=== PATIENT | female | born 1965 | race Caucasian/White ===

== ENCOUNTER 2020-06-16 09:15 | Outpatient (CLI) | payer OTHER, SELFPAY ==
--- NOTE | ~2020-06-16 | MM_ITS ---
EXAMINATION: MM screening mary BI w james HISTORY: Screening TECHNIQUE: Craniocaudal and mediolateral oblique 3-D tomosynthesis images were obtained and synthetic 2-D images were generated. CAD analysis was submitted and interpreted. COMPARISON: Comparison to multiple prior studies sequentially, with oldest reviewed study dated 12/18. BREAST PARENCHYMAL COMPOSITION: The breasts are heterogeneously dense, which may obscure small masses . FINDINGS: There is no evidence of suspicious mass, calcification, or architectural distortion to sugg est malignancy in either breast. There has been no suspicious interval change. IMPRESSION: 1. No mammographic evidence of malignancy. 2. Recommend routine screening mammography in one year. BI-RADS Category 1: Negative Reviewed, dictated and finalized at location A.
== END 2020-06-16 09:16 | disposition home or self-care (01) ==
LOC: ANHIMG 09:23
PROVIDERS: PCP Family Medicine; Visit Provider Nurse Practitioner
DX: Z12.31 Encounter for screening mammogram for malignant neoplasm of breast (principal)
CPT/HCPCS: 77063; 77067

== ENCOUNTER 2021-07-03 08:03 | Outpatient (CLI) | payer OTHER, SELFPAY ==
--- NOTE | ~2021-07-03 | MM_ITS ---
EXAMINATION: MM screening mary BI w james HISTORY: Screening mammogram TECHNIQUE: Craniocaudal and mediolateral oblique 3-D tomosynthesis images were obtained and synthetic 2-D images were generated. CAD analysis was submitted and interpreted. COMPARISON: 06/16/2020, 05/18/2019, 05/16/2018 bilateral screening mammogram examinations BREAST PARENCHYMAL COMPOSITION: There are scattered areas of fibroglandular density. FINDINGS: Possible new 6.4 mm circumscribed mass in the posterior mid inner right breast (craniocauda l Tomosynthesis image 33/73; MLO Tomosynthesis image 37/80). Diagnostic right mammogram and right karlene ast ultrasound examination are recommended. Otherwise there is no evidence of suspicious mass, calcification, or architectural distortion to sugg est malignancy in either breast. Occasional bilateral benign calcifications. There has been no other suspicious interval change. Biopsy marker on the left; history of prior benign left breast biopsy. IMPRESSION: 1. No mammographic evidence of malignancy. 2. Recommend routine screening mammography in one year. BI-RADS Category 0: Incomplete: Needs additional imaging evaluation. Reviewed, dictated and finalized at location A.
== END 2021-07-03 08:04 | disposition home or self-care (01) ==
LOC: ANHIMG 08:04
PROVIDERS: PCP Family Medicine; Visit Provider Nurse Practitioner
DX: Z12.31 Encounter for screening mammogram for malignant neoplasm of breast (principal); R92.8 Other abnormal and inconclusive findings on diagnostic imaging of breast
CPT/HCPCS: 77063; 77067

== ENCOUNTER 2021-07-22 20:16 | Emergency (ER) | payer OTHER, SELFPAY ==
--- NOTE | ~2021-07-22 | XR_ITS ---
EXAMINATION: XR knee RT min 4V DATE: 07/22/2021 21:07 INDICATION: Posterior right knee pain TECHNIQUE: Anteroposterior, 2 oblique and crosstable lateral views of the right knee were obtained COMPARISON: None. FINDINGS: Alignment is normal. No fracture. Joint spaces appear normal but could be underestimated on nonweigh tbearing imaging. Couple small loose bodies projecting over the recess posterior to the medial compar tment. Small enthesopathic ossicle at the distal quadriceps tendon. No joint effusion/layering lipohe marthrosis. Soft tissues are unremarkable. IMPRESSION: 1. No right knee joint effusion or osseous abnormality. Reviewed, dictated and finalized at location A. 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
[2021-07-22 20:29] VITALS: BP 155/82; PULSE 91; RESP 14; TEMP 36.4; O2SAT 100
[2021-07-22 21:16] LABS: Basophils Percent Auto 0.6 % (0.2-1.2); Eosinophils Absolute Auto 0.2 K/mm3 (0-0.3); Eosinophils Percent Auto 2.9 % (0-4.4); Hemoglobin 12.6 g/dL (12.0-15.0); Immature Granulocyte Absolute 0.01 K/mm3 (0.00-0.031); Immature Granulocyte Percent A 0.1 % (0-0.5); Lymphocytes Percent Auto 29.2 % (18.3-44.2); Mean Corpuscular HGB Conc 33.2 g/dl (32-36); Mean Corpuscular Hemoglobin 31.7 pg (26-34); Mean Corpuscular Volume 95.5 fl (80-100); Mean Platelet Volume 9.7 fl (7.4-10.4); Monocytes Absolute Auto 0.7 K/mm3 (0.1-0.6); Monocytes Percent Auto 10.1 % (2.6-8.5); Neutrophils Absolute Auto 3.9 K/mm3 (1.3-6.7); Neutrophils Percent Auto 57.1 % (45.5-73.1); Platelet Count Result 304 k/mm3 (150-375); Red Blood Count 3.98 M/mm3 (4.2-5.4); Red Cell Distribution Width 13.2 % (11.5-14.5); White Blood Count 6.9 K/mm3 (4.5-10.0)
[2021-07-22 21:28] LABS: D Dimer 0.44 ug/mL (<0.48)
[2021-07-22 21:29] LABS: Anion Gap 8 mmol/L (8-16); Blood Urea Nitrogen 16 mg/dL (7-17); Calcium 9.3 mg/dL (8.4-10.2); Carbon Dioxide 25 mmol/L (22-30); Chloride 105 mmol/L (98-107); Estimated CRCL calculation 62 ml/min; Estimated Glomerular Filt Rate > 60; Glucose 131 mg/dL (65-110); Sodium 138 mmol/L (137-145)
--- NOTE | 2021-07-22 22:00 | ED.EXTPRO ---
HPI - Extremity Problem General Chief complaint: Extremity Problem,Nontraumatic Stated complaint: right leg pain X3 days Time Seen by Provider: 07/22/21 20:47 Source: patient Mode of arrival: ambulatory Limitations: no limitations History of Present Illness HPI Narrative: 55-year-old with no major medical problems here with complaints of pain behind the right knee for last 3 days. She denies any trauma. No joint swelling. No previous history of DVT. MD Complaint: joint paint Onset (ago): day(s) (3) Pain Consistency: constant Location: knee (Right) Quality: aching Radiation: none Relieving factors: nothing Exacerbating factors: walking Associated symptoms: denies other symptoms Related Data Home Medications Medication Instructions Recorded Confirmed progesterone micronized 200 mg 200 mg PO DAILY cap 10/13/20 04/07/21 capsule Allergies Allergy/AdvReac Type Severity Reaction Status Date / Time Sulfa (Sulfonamide Allergy Unknown rash, Verified 07/22/21 20:39 Antibiotics) throat swelling Review of Systems Review of Systems: All systems reviewed & are unremarkable except as noted in HPI and below Constitutional: Constitutional: Reports no additional constitutional complaints Eyes: Eyes: Reports no additional eye complaints ENT: Reports system reviewed and no additional complaints, except as documented Cardiovascular: Cardiovascular: Reports no additional cardiovascular complaints Respiratory: Respiratory: Reports no additional respiratory complaints Gastrointestinal: Gastrointestinal: Reports no additional gastrointestinal complaints Musculoskeletal: Musculoskeletal: Reports as per HPI Neurologic: Reports system reviewed and no additional complaints, except as documented PMFSH Past Medical History Medical History Hypertension Surgical History Surgical History H/O section History of appendectomy Family History Family History Grandparent Family history of malignant neoplasm of stomach Mother Hypertension Hyperlipidemia Afib Sibling Carcinoma of colon Other Family history of malignant neoplasm of kidney Social History Social History Second hand tobacco smoke exposure: No Alcohol intake: current Substance use: never Substance use type: does not use Gender identity (if verbalized by the patient): Female Exam Narrative: GENERAL: Well-appearing, well-nourished, and in no acute distress. HEAD: Normocephalic, atraumatic. EYES: PERRLA and EOMI. NECK: Supple. CHEST: Clear to auscultation. No respiratory distress. HEART: Regular rate and rhythm. No murmur heard. Normal peripheral pulses. EXTREMITIES: Normal range of motion. No edema. Examination of the right knee showed no evidence of joint effusion no calf tenderness no erythema. Pain in the popliteal area. SKIN: Warm, dry, no rash. NEURO: No focal deficits. Alert and oriented x3. PSYCH: Normal mood and affect. Course Course Emergency Course: Inform patient and her family about her lab work, x-ray findings I suspect there could be a small Rouse's cyst which could be causing this pain advised her to follow-up with her primary doctor for further work-up, meanwhile will apply Mauro wrap and pain medication. Vital Signs Vital signs: Vital Signs Temperature 36.4 C L 07/22/21 20:29 Pulse Rate 91 07/22/21 20:29 Respiratory Rate 14 07/22/21 20:29 Blood Pressure 155/82 H 07/22/21 20:29 Pulse Oximetry 100 07/22/21 20:29 Temperature 36.4 C L 07/22/21 20:29 Pulse Rate 91 07/22/21 20:29 Respiratory Rate 14 07/22/21 20:29 Blood Pressure 155/82 H 07/22/21 20:29 Pulse Oximetry 100 07/22/21 20:29 MDM - Extremity (Nontraumatic) MDM Narrative Medical decision making narr
[2021-07-22 22:17] VITALS: BP 153/85; PULSE 79; RESP 16; O2SAT 100
== END 2021-07-22 22:20 | disposition home or self-care (01) ==
PROVIDERS: Emergency Provider Family Medicine; PCP Family Medicine
DX: M25.561 Pain in right knee (principal); I10 Essential (primary) hypertension
CPT/HCPCS: 36415; 73564; 80048; 85025; 85380; 99283

== ENCOUNTER 2021-07-23 07:46 | Outpatient (CLI) | payer OTHER, SELFPAY ==
--- NOTE | ~2021-07-23 | US_ITS ---
EXAMINATION: US venous doppler LE RT EXAM DATE: 07/23/2021 08:21 INDICATION: Right leg pain. TECHNIQUE: Multiple grayscale, color flow and Doppler images of the right lower extremity deep venous system were obtained and reviewed. There is no prior study for comparison. FINDINGS: The right common femoral, femoral and profunda veins demonstrate normal color flow, respira tory variation, augmentation and compressibility. Compressibility, color flow confirmed within the r ight popliteal, posterior tibial, peroneal, and greater saphenous veins. IMPRESSION: 1. No right lower extremity deep venous thrombosis. Reviewed, dictated and finalized at location B. 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
== END 2021-07-23 07:47 | disposition home or self-care (01) ==
PROVIDERS: PCP Family Medicine; Visit Provider Family Medicine
DX: I82.403 Acute embolism and thrombosis of unspecified deep veins of lower extremity, bilateral (principal)
CPT/HCPCS: 93971

== ENCOUNTER 2021-07-28 12:35 | Outpatient (CLI) | payer OTHER, SELFPAY ==
--- NOTE | ~2021-07-28 | MMUS_ITS ---
EXAMINATION: MM diagnostic mary RT w james, US breast RT limited HISTORY: Possible right breast mass on screening mammogram TECHNIQUE: Additional 3-D tomosynthesis images of the right breast were performed and synthetic 2-D i mages were generated. CAD analysis was submitted and interpreted. High resolution limited right breas t ultrasound was performed. COMPARISON: 07/03/2021, 06/16/2020, 05/18/2019, 05/16/2018 FINDINGS: MAMMOGRAPHIC FINDINGS: There is a return to baseline fibroglandular appearance with spot compression of the right breast in the area questioned on screening mammogram. A low-density mass in the posterior third of the breast h as a stable appearance when compared to prior mammograms. ULTRASOUND: There is a 5 mm cyst at the 2:00 location of the breast projecting near the nipple. IMPRESSION: 1. No mammographic or sonographic evidence of malignancy. 2. Recommend routine screening mammography in one year. BI-RADS Category 2: Benign finding(s). Reviewed, dictated and finalized at location A. 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 No mammographic or sonographic evidence of malignancy. 2. Recommend routine screening mammography in one year. BI-RADS Category 2: Benign finding(s).
== END 2021-07-28 12:36 | disposition home or self-care (01) ==
PROVIDERS: PCP Family Medicine; Visit Provider Obstetrics & Gynecology Gynecology
DX: R92.8 Other abnormal and inconclusive findings on diagnostic imaging of breast (principal)
CPT/HCPCS: 76642; 77061; 77065; G0279

== ENCOUNTER 2022-08-16 02:12 | Day surgery (SDC) | payer BC, SELFPAY ==
[2022-08-13 11:46] VITALS: BMI 30.2
[2022-08-16] VITALS (8 sets, daily range): BP systolic 117–131; BP diastolic 71–86; PULSE 71–75; RESP 12–19; TEMP 36.9; O2SAT 98–100; BMI 28.5
[2022-08-16 07:38] LABS: Anion Gap 9 mmol/L (8-16); Basophils Absolute Auto 0.1 K/mm3 (0.0-0.1); Blood Urea Nitrogen 18 mg/dL (7-17); Calcium 8.8 mg/dL (8.4-10.2); Carbon Dioxide 27 mmol/L (22-30); Chloride 106 mmol/L (98-107); Eosinophils Absolute Auto 0.3 K/mm3 (0-0.3); Eosinophils Percent Auto 4.6 % (0-4.4); Estimated CRCL calculation 64 ml/min; Estimated Glomerular Filt Rate > 60; Glucose 104 mg/dL (65-110); Hematocrit 38.5 % (37.0-47.0); Hemoglobin 12.6 g/dL (12.0-15.0); Immature Granulocyte Absolute 0.02 K/mm3 (0.00-0.031); Immature Granulocyte Percent A 0.3 % (0-0.5); Lymphocytes Absolute Auto 1.93 K/mm3 (0.9-3.2); Lymphocytes Percent Auto 30.6 % (18.3-44.2); Mean Corpuscular HGB Conc 32.7 g/dl (32-36); Mean Corpuscular Hemoglobin 31.5 pg (26-34); Mean Corpuscular Volume 96.3 fl (80-100); Mean Platelet Volume 9.7 fl (7.4-10.4); Monocytes Absolute Auto 0.6 K/mm3 (0.1-0.6); Monocytes Percent Auto 9.5 % (2.6-8.5); Neutrophils Absolute Auto 3.4 K/mm3 (1.3-6.7); Platelet Count Result 294 k/mm3 (150-375); Potassium 3.6 mmol/L (3.4-5.0); Sodium 142 mmol/L (137-145); White Blood Count 6.3 K/mm3 (4.5-10.0)
--- NOTE | 2022-08-16 08:26 | WPDMODSED ---
Moderate Sedation Note-Pt Data Patient Data Diagnosis: Abnormal stress test atypical chest pain Present Complaint: intermittent nonexertional chest pain Procedure to be performed/Plan: left heart catheterization Allergies Allergy/AdvReac Type Severity Reaction Status Date / Time Sulfa (Sulfonamide Allergy Unknown rash, Verified 04/12/22 09:22 Antibiotics) throat swelling Home Medications Medication Instructions Recorded Confirmed Type progesterone micronized 200 mg 100 mg PO DAILY 04/12/22 08/13/22 History capsule aspirin 81 mg tablet,delayed 81 mg PO DAILY #30 tabs 07/28/22 08/16/22 Rx release atorvastatin 20 mg tablet 20 mg PO DAILY #30 tabs 07/28/22 08/13/22 Rx lisinopril 20 mg tablet 20 mg PO DAILY #90 tabs 08/10/22 08/16/22 Rx multivit with minerals-iron 18 1 tablet PO DAILY 08/13/22 08/13/22 History mg-folic ac 400 mcg-vit K 25 mcg tablet (Adults Multivitamin) Current Medications: Active Medications Sodium Chloride (Normal Saline Iv) 500 mls @ 100 mls/hr IV CONT .Q5H CHRISTINA Sedation/Anesthesia: No previous sedation/anesthesia problems (including family history). COUNTS INCLUDE 234 BEDS AT THE [facility] Past Medical History Medical History Hypertension Surgical History Surgical History H/O section History of appendectomy Family History Family History Grandparent Family history of malignant neoplasm of stomach Mother Hypertension Hyperlipidemia Afib Sibling Carcinoma of colon Other Family history of malignant neoplasm of kidney Social History Social History Smoking status: Never smoker Second hand tobacco smoke exposure: No Alcohol intake: current Alcohol use details: occasional Substance use: never Substance use type: does not use Living arrangements: with family Gender identity (if verbalized by the patient): Female Spiritual care concerns: No Mod Sed Physical Exam Physical Exam Pre Procedural Exam: Normal: Appearance, Neck, Throat, Airway, Lungs, Heart Size, Heart Rate, Heart Rhythm, Neuro Exam and Extremities Hours since solid foods: 12 Hours since liquid intake: 12 Mallampati Classification: class II Internal Medicine - PN: Obj Da Vital Signs Vital Signs: Vital Signs - 24 hr 08/16/22 07:00 Temperature 36.9 C Pulse Rate 75 Respiratory Rate 19 Blood Pressure 131/86 Pulse Oximetry 100 Oxygen Delivery Room Air Intake/Output Intake/Output: Intake & Output 08/13/22 08/14/22 08/15/22 08/16/22 23:59 23:59 23:59 23:59 Output Total 0 Balance 0 Meds/Results Medications: Active Medications Generic Name Dose Route Start Last Admin Trade Name Freq PRN Reason Stop Dose Admin Sodium Chloride 500 mls @ 100 mls/hr 08/16/22 07:00 Normal Saline Iv IV CONT .Q5H CHRISTINA Labs 08/16/22 07:15 08/16/22 07:15 Labs: Laboratory Results - last 24 hr 08/16/22 08/16/22 07:15 07:15 WBC 6.3 RBC 4.00 L Hgb 12.6 Hct 38.5 MCV 96.3 MCH 31.5 MCHC 32.7 RDW 13.0 Plt Count 294 MPV 9.7 Immature Gran % (Auto) 0.3 Neut % (Auto) 54.0 Lymph % (Auto) 30.6 [place] % (Auto) 9.5 H Eos % (Auto) 4.6 H Baso % (Auto) 1.0 Lymph # (Auto) 1.93 [place] # (Auto) 0.6 Eos # (Auto) 0.3 Baso # (Auto) 0.1 Abs Immat Gran (auto) 0.02 Absolute Neuts (auto) 3.4 Absolute Nucleated RBC 0.0 Nucleated RBC % 0.0 Sodium 142 Potassium 3.6 Chloride 106 Carbon Dioxide 27 Anion Gap 9 BUN 18 H Creatinine 0.90 Estim Creat Clear Calc 64 Estimated GFR > 60 Glucose 104 Calcium 8.8 ASA Classification/Sedation ASA Classification/Sedation ASA Class: II Emergent: No Risks: Risks, benefits and alternatives explained and pat
--- NOTE | 2022-08-16 08:52 | WPDCARDPROC ---
Cardiac Cath Procedure Note Date of procedure:: 08/16/22 Performing physician:: Kingston Cornejo MD Indication:: intermittent chest pain abnormal stress test Brief clinical history:: this is a 56-year-old woman with no prior cardiac history who has been having intermittent episodes of chest pain. Stress testing is mildly abnormal suggesting possible CAD. Procedure Procedure performed:: Left ventriculogram coronary angiogram Angio-Seal to right femoral artery Sedation/Medication given:: fentanyl 50 mg Versed 2 mg case start time 8:33 a.m. case end time 8:49 a.m. sedation provided by Constance Davis RN, trained observer Access site:: right femoral artery Estimated blood loss:: 20 cc Procedure note:: patient was brought to the cardiac catheterization lab in the postabsorptive state the right femoral triangle was prepared and draped in the normal fashion. Anesthesia was provided with 1% lidocaine infiltrated locally. Using the modified Seldinger technique a 5 [place] sheath was placed into the right common femoral artery after this left heart catheterization was carried out. I used a 5 [place] angled pigtail catheter to measure left-sided hemodynamics and to inject the left ventriculogram in the DUEÑAS projection. Following this A 5 [place] FL4 catheter was engaged in the left main coronary artery and left coronary injections were made in multiple projections. After this a 5 [place] JR4 catheter was used to engage the right coronary which was it injected in orthogonal projections. After this cineangiograms were reviewed and the case was terminated. An angiogram was performed to the femoral artery through the sheath after which an Angio Seal device was deployed with a good hemostatic result. The procedure was well tolerated and uncomplicated. 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 Findings:: Hemodynamics: Left ventricle: The LV is normal in size all segments contract appropriately the global ejection fraction is 60-65% by visual estimation there were no regional wall motion abnormalities noted. The left main coronary artery is widely patent the left anterior descending is a moderate caliber artery extending down to the apex. The LAD and its branches are smooth and angiographically normal in appearance the circumflex is a moderate to large caliber vessel giving rise to the marginal branches and a posterior branch. The circumflex system and its branches are angiographically normal in appearance. The right coronary artery is dominant to the posterior circulation terminating in an RPDA. The posterolateral vessels arise from the circumflex as described above. The right coronary artery is angiographically normal. Conclusion:: 1. Right coronary dominant circulation with no evidence of coronary artery disease 2. normal left ventricular systolic function 3. based on these findings the patient's symptoms appear to be nonischemic and her stress test is a false-positive result. Kingston Cornejo MD [facility]
--- NOTE | 2022-08-16 10:58 | SUR.PHASEII ---
patient ambulated to chair w/out difficulty. right groin site wnl. discharge instructions given with at bedside. all questions and concerns address.
== END 2022-08-16 11:50 | disposition home or self-care (01) ==
PROVIDERS: PCP Family Medicine; Visit Provider Specialist
PROC: 4A023N7 Measurement of Cardiac Sampling and Pressure, Left Heart, Percutaneous Approach (ICD-10-PCS; CPT 93452; principal; 2022-08-16 08:30)
DX: R94.39 Abnormal result of other cardiovascular function study (principal); R07.9 Chest pain, unspecified; I10 Essential (primary) hypertension; Z79.82 Long term (current) use of aspirin
CPT/HCPCS: 36415; 80048; 85025; 93458; C1760; C1887; C1894; G0269; J1644; J2250; J3010; J7040

== ENCOUNTER 2022-08-17 15:53 | Outpatient (CLI) | payer BC, SELFPAY ==
--- NOTE | ~2022-08-17 | MM_ITS ---
EXAMINATION: MM screening mary BI w james HISTORY: Screening TECHNIQUE: Craniocaudal and mediolateral oblique 3-D tomosynthesis images were obtained and synthetic 2-D images were generated. CAD analysis was submitted and interpreted. COMPARISON: Comparison to multiple prior studies sequentially, with oldest reviewed study dated 04/22. BREAST PARENCHYMAL COMPOSITION: The breasts are heterogeneously dense, which may obscure small masses . FINDINGS: There are focal asymmetries medially in the left breast, not definitely seen on prior exami nation. The right breast is stable without evidence for malignancy. IMPRESSION: 1. New nodular asymmetries in the lower inner quadrant of the left breast. 2. Additional mammographic views and possible breast ultrasound are recommended. BI-RADS Category 0: Incomplete: Needs additional imaging evaluation. Reviewed, dictated and finalized at location B. 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 New nodular asymmetries in the lower inner quadrant of the left breast. 2. Additional mammographic views and possible breast ultrasound are recommended . BI-RADS Category 0: Incomplete: Needs additional imaging evaluation.
--- NOTE | ~2022-08-17 | DEXA_ITS ---
Bone Density Report Name: COURTNEY DUNBAR Age: 56 Sex: Female Ethnicity: White Date of : 1965 Indication: postmenopausal; screening for osteoporosis; Referring Provider: AJ DODD Study: Bone densitometry was performed. Exam Date: August 17, 2022 Accession number: [id number] Bone Density: Region BMD T-score Z-score Classification AP Spine(L1-L4) 1.213 1.5 2.8 Normal Femoral Neck (Left) 0.935 0.8 2.0 Normal Total Hip (Left) 1.095 1.3 2.1 Normal Femoral Neck (Right) 0.849 0.0 1.2 Normal Total Hip (Right) 1.037 0.8 1.7 Normal Total Hip Mean 1.066 1.1 1.9 Normal World Health Organization criteria for BMD impression classify patients as: Normal (T-score at or above -1.0), Osteopenia (T-score between -1.0 and -2.5), or Osteoporosis (T-score at or below -2.5). 10-year Fracture Risk: FRAX not reported because: All T-scores for Spine Total, Hip Total, Femoral Neck at or above -1.0 Clinical Information Provided by Patient: Has used the following medications: HRT (i.e. estrogen/hormone therapy), Calcium Patient maximum height was 66 Menopause Age: 49 Drinks caffeinated beverages Onset of menses at age 10 Number of children 3 Impression: The patient has normal bone mass. Discussion: BONE DENSITY IS ABOVE THE MINIMUM DESIRABLE LEVEL AT ALL SKELETAL SITES TESTED. This patient?s bone mineral density is above the minimum desirable level (T-score -1.0 or better) at all sites measured. The patient should follow a healthful lifestyle (good nutrition with adequate calcium and vitamin D, and appropriate weight-bearing exercise). Follow-Up: Consider repeating this study in 5 years or sooner if there is some new clinical indication. Reported by: KEYA on 08/17/2022 4:25:00 PM. Reviewed, dictated and finalized at location AEmerald AYON
== END 2022-08-17 15:54 | disposition home or self-care (01) ==
PROVIDERS: PCP Family Medicine; Visit Provider Obstetrics & Gynecology Gynecology
DX: Z12.31 Encounter for screening mammogram for malignant neoplasm of breast (principal); Z78.0 Asymptomatic menopausal state; R92.8 Other abnormal and inconclusive findings on diagnostic imaging of breast
CPT/HCPCS: 77063; 77067; 77080

== ENCOUNTER 2022-09-10 12:19 | Outpatient (CLI) | payer BC, SELFPAY ==
--- NOTE | ~2022-09-10 | MM_ITS ---
EXAMINATION: MM diagnostic mary LT w james HISTORY: Left breast asymmetries on screening mammogram TECHNIQUE: Additional 3-D tomosynthesis images of the left breast were performed and synthetic 2-D im ages were generated. CAD analysis was submitted and interpreted. COMPARISON: 08/17/2022, 07/03/2021, 06/16/2020 FINDINGS: There is a return to baseline fibroglandular appearance with spot compression of the left b reast in the area questioned on screening mammogram. IMPRESSION: 1. No mammographic evidence of malignancy. 2. Recommend routine screening mammography in one year. BI-RADS Category 1: Negative Reviewed, dictated and finalized at location A. 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
== END 2022-09-10 12:20 | disposition home or self-care (01) ==
LOC: ANHIMG 12:20
PROVIDERS: PCP Family Medicine; Visit Provider Obstetrics & Gynecology Gynecology
DX: R92.8 Other abnormal and inconclusive findings on diagnostic imaging of breast (principal)
CPT/HCPCS: 77061; 77065; G0279

== ENCOUNTER 2023-11-25 14:43 | Outpatient (CLI) | payer BC, SELFPAY ==
--- NOTE | ~2023-11-25 | MM_ITS ---
EXAMINATION: MM screening [facility] BI w james HISTORY: Screening TECHNIQUE: Craniocaudal and mediolateral oblique 3-D tomosynthesis images were obtained and synthetic 2-D images were generated. CAD analysis was submitted and interpreted. COMPARISON: Comparison to multiple prior studies sequentially, with oldest reviewed study dated 05/18. BREAST PARENCHYMAL COMPOSITION: Not dense: There are scattered areas of fibroglandular density. FINDINGS: There is no evidence of suspicious mass, calcification, or architectural distortion to sugg est malignancy in either breast. There has been no suspicious interval change. IMPRESSION: 1. No mammographic evidence of malignancy. 2. Recommend routine screening mammography in one year. BI-RADS Category 1: Negative Reviewed, dictated and finalized at location A.
== END 2023-11-25 14:44 | disposition home or self-care (01) ==
LOC: ANHIMG 14:45
PROVIDERS: PCP Family Medicine; Visit Provider Nurse Practitioner
DX: Z12.31 Encounter for screening mammogram for malignant neoplasm of breast (principal)
CPT/HCPCS: 77063; 77067

== ENCOUNTER 2024-03-14 05:45 | Emergency (ER) | payer BC, SELFPAY ==
--- NOTE | ~2024-03-14 | CT_ITS ---
CT of the Abdomen and Pelvis: Indication: Abdominal pain Technique: 2.5 mm axial scans were obtained through the abdomen and pelvis following intravenous adm inistration of 100 cc of Omnipaque 350. Dose reduction technique was used on this scan by utilizing a utomated exposure control and iterative reconstruction technique. The dose-length product (DLP) was 5 31.17 mGy-cm. Findings: Scans through the lung bases are unremarkable. The liver, spleen, pancreas, gallbladder, and adrenal glands are within normal limits. 3 mm nonobstru cting right renal stone present. Small bilateral renal cysts are present. There are atherosclerotic c alcifications of the aorta. No lymphadenopathy. No bowel obstruction or bowel wall thickening. There is no evidence to suggest acute appendicitis. Images through the pelvis were performed. Urinary bladder unremarkable. No pelvic mass seen. No ascit es. Impression: No acute abnormality. 3 mm nonobstructing right renal stone. Reviewed, dictated and finalized at [facility]. Impression: No acute abnormality. 3 mm nonobstructing right renal stone.
[2024-03-14 05:49] VITALS: BP 156/79; PULSE 90; RESP 20; TEMP 36.7; O2SAT 100
[2024-03-14 05:54] VITALS: BP 156/79; PULSE 92; RESP 22; TEMP 36.7; O2SAT 100
[2024-03-14] MEDS: ONDANSETRON INJ 4 MG/2 ML VIAL IV PUSH (05:59)
[2024-03-14 06:02] LABS: Basophils Absolute Auto 0.1 K/mm3 (0.0-0.1); Eosinophils Absolute Auto 0.3 K/mm3 (0-0.3); Eosinophils Percent Auto 4.7 % (0-4.4); Hematocrit 37.1 % (37.0-47.0); Hemoglobin 12.3 g/dL (12.0-15.0); Immature Granulocyte Absolute 0.01 K/mm3 (0.00-0.031); Immature Granulocyte Percent A 0.2 % (0-0.5); Lymphocytes Percent Auto 41.7 % (18.3-44.2); Mean Corpuscular HGB Conc 33.2 g/dl (32-36); Mean Corpuscular Hemoglobin 31.5 pg (26-34); Mean Corpuscular Volume 94.9 fl (80-100); Mean Platelet Volume 9.8 fl (7.4-10.4); Monocytes Absolute Auto 0.5 K/mm3 (0.1-0.6); Monocytes Percent Auto 8.9 % (2.6-8.5); Neutrophils Absolute Auto 2.5 K/mm3 (1.3-6.7); Neutrophils Percent Auto 43.5 % (45.5-73.1); Platelet Count Result 306 k/mm3 (150-375); Red Blood Count 3.91 M/mm3 (4.2-5.4); Red Cell Distribution Width 13.1 % (11.5-14.5); White Blood Count 5.8 K/mm3 (4.5-10.0)
[2024-03-14 06:16] LABS: Alanine Aminotransferase 27 U/L (6-35); Albumin Level 4.3 g/dL (3.5-5.1); Alkaline Phosphatase 62 U/L (38-126); Anion Gap 9 mmol/L (4-12); Aspartate Amino Transferase 28 U/L (14-36); Bilirubin,Total 0.7 mg/dL (0.2-1.3); Blood Urea Nitrogen 18 mg/dL (7-17); Calcium 9.1 mg/dL (8.4-10.2); Carbon Dioxide 26 mmol/L (22-30); Chloride 106 mmol/L (98-107); Estimated CRCL calculation 69 ml/min; Estimated Glomerular Filt Rate > 60; Glucose 116 mg/dL (65-110); Lipase 80 U/L (23-300); Potassium 3.7 mmol/L (3.4-5.0); Sodium 141 mmol/L (137-145)
--- NOTE | 2024-03-14 06:57 | ED.NAVMDI ---
HPI - Nausea/Vomiting/Diarrhea General Chief complaint: Nausea/Vomiting/Diarrhea Stated complaint: nausea and diarrhea x 4 Time Seen by Provider: 03/14/24 05:52 History of Present Illness HPI Narrative: Patient presents with some nausea and constipation for the last few days, 4 days ago she was having diarrhea, that has resolved now she has not had a bowel movement. She does have history of appendicitis 10 years ago. Related Data Home Medications Medication Instructions Recorded Confirmed progesterone micronized 200 mg 100 mg PO DAILY 04/12/22 04/26/23 capsule multivit with minerals-iron 18 1 tablet PO DAILY 08/13/22 04/26/23 mg-folic ac 400 mcg-vit K 25 mcg tablet (Adults Multivitamin) Allergies Allergy/AdvReac Type Severity Reaction Status Date / Time Sulfa (Sulfonamide Allergy Unknown rash, Verified 04/26/23 09:06 Antibiotics) throat swelling PMFSH Past Medical History Medical History Hypertension Surgical History Surgical History H/O section History of appendectomy Family History Family History Grandparent Family history of malignant neoplasm of stomach Mother Hypertension Hyperlipidemia Afib Sibling Carcinoma of colon Other Family history of malignant neoplasm of kidney Social History Social History Smoking status: Never smoker Second hand tobacco smoke exposure: No Alcohol intake: current Alcohol use details: occasional Substance use: never Substance use type: does not use Lack of Transportation: No Lack of Food: Never True Current Housing: I Have Housing Concerned About Future Housing: No Difficulty Paying Gas/Electric Bills: No Difficulty Paying for Meds: No Currently Unemployed: No Education: Bachelor's Degree Difficulty w/ Childcare or Family Care: No Living arrangements: with family Occupation/Education: occupation Gender identity (if verbalized by the patient): Female Spiritual care concerns: No Exam Narrative: EXAMINATION OF ORGAN SYSTEMS/BODY AREAS: Constitutional: Vital signs per nursing GENERAL:[No acute distress, non-toxic appearing.] HEAD: Normal with no signs of head trauma. EYES: EOMI, conjunctiva normal ENT: Hearing grossly intact LUNGS: Nonlabored breathing. HEART: [Regular rate and rhythm] ABD: [Soft], [nontender to palpation] EXT: Normal range of motion SKIN: [No rashes or lesions.] NEURO: [Alert and oriented x 3. No gross focal sensory or strength deficits.] PSYCH: Normal affect Course Vital Signs Vital signs: Vital Signs Temperature 98.0 F 03/14/24 05:49 Pulse Rate 90 03/14/24 05:49 Respiratory Rate 20 03/14/24 05:49 Blood Pressure 156/79 H 03/14/24 05:49 Pulse Oximetry 100 03/14/24 05:49 Oxygen Delivery Room Air 03/14/24 05:49 Temperature 98.0 F 03/14/24 05:54 Pulse Rate 92 03/14/24 05:54 Respiratory Rate 22 H 03/14/24 05:54 Blood Pressure 156/79 H 03/14/24 05:54 Pulse Oximetry 100 03/14/24 05:54 Oxygen Delivery Room Air 03/14/24 05:49 MDM - Nausea/Vomiting/Diarrhea MDM Narrative Medical decision making narrative: Electronic medical record was reviewed. Patient presented to the ED with complaint of [abdominal pain and Nausea and constipation]. Vitals [were within acceptable limits]. Physical exam revealed soft abdomen without much tenderness to palpation, patient does report some left-sided abdominal discomfort. Based on the patient's history and physical exam, my differential includes but is not limited to [gastritis, gastroenteritis, Constipation, SBO, diverticulitis]. [IV access was established by nursing staff. Patient was given zofran]. CBC, BMP, lipase, LFTs, bilirubin and alk phos were obtai
[2024-03-14 07:27] VITALS: BP 117/72; PULSE 72; RESP 19; O2SAT 100
== END 2024-03-14 07:28 | disposition home or self-care (01) ==
LOC: ANHED 07:13
PROVIDERS: Emergency Provider Emergency Medicine; PCP Family Medicine
DX: K59.00 Constipation, unspecified (principal); I10 Essential (primary) hypertension
CPT/HCPCS: 36415; 74177; 80053; 83690; 85025; 96374; 99284; J2405; Q9967

== ENCOUNTER 2024-08-24 01:07 | Day surgery (SDC) | payer BC, SELFPAY ==
[2024-08-15 13:50] VITALS: BMI 29.1
--- NOTE | 2024-08-23 13:37 | WPDANESEPPF ---
Anes - Initial Pre Proc Eval Procedure: Operation Date: 08/24/24 08:30 Proposed Procedures p Screening Colonoscopy - Alexandro Jeffery MD Date/Time: 08/23/24 13:37 Surgeon: Alexandro Jeffery MD Pre Op Diagnosis: Neoplasm screening Patient Data Age: 58 Gender: F Height: 1.65 m Weight: 79.4 kg Allergies Allergy/AdvReac Type Severity Reaction Status Date / Time Sulfa (Sulfonamide Allergy Unknown rash, Verified 08/24/24 07:10 Antibiotics) throat swelling Home Medications ?Medication ?Instructions ?Recorded ?Confirmed ?Type progesterone micronized 200 mg 100 mg PO DAILY 04/12/22 08/24/24 History capsule multivit with minerals-iron 18 1 tablet PO DAILY 08/13/22 08/24/24 History mg-folic ac 400 mcg-vit K 25 mcg tablet (Adults Multivitamin) atorvastatin 20 mg tablet 20 mg PO DAILY #90 tabs 04/08/24 08/24/24 Rx lisinopril 20 mg tablet 20 mg PO DAILY #90 tabs 05/28/24 08/24/24 Rx Patient hx anesthesia problems: none Family hx anesthesia problems: none Results Review: All pre-operative results and documents have been reviewed as part of the pre-operative evaluation. [facility] Past Medical History Medical History (Updated 05/04/24 @ 08:59 by Blanka Alves PA-C) Hyperlipidemia Hypertension Surgical History Surgical History History of appendectomy H/O section Family History Family History Grandparent Family history of malignant neoplasm of stomach Mother Hypertension Hyperlipidemia Afib Sibling Carcinoma of colon Other Family history of malignant neoplasm of kidney Social History Social History Smoking status: Never smoker Second hand tobacco smoke exposure: No Alcohol intake: current Alcohol use details: occasional Substance use: never Substance use type: does not use Lack of Transportation: No Lack of Food: Never True Current Housing: I Have Housing Concerned About Future Housing: No Difficulty Paying Gas/Electric Bills: No Difficulty Paying for Meds: No Currently Unemployed: No Education: Bachelor's Degree Difficulty w/ Childcare or Family Care: No Living arrangements: with family Occupation/Education: occupation Gender identity (if verbalized by the patient): Female Spiritual care concerns: No Anes - Eval Final PreProcedure Day of Procedure 08/23/24 13:37 Patient weight: obese Heart: regular rate and rhythm Lungs: clear to auscultation Airway: Mallampati scale class II Neurological: alert and oriented Last oral intake: >/= 8 hours ASA classification: III Emergent: no Anesthetic plan: proceed Anesthesia type and monitoring: general GIVS and standard monitoring Results Review: All pre-operative results and documents have been reviewed as part of the pre-operative evaluation. Informed Consent: The patient's anesthetic plan and its attendant risks and benefits were discussed with the patient/family/POA. Questions were solicited and answers provided to the satisfaction of the patient/family/POA.
[2024-08-24 07:13] VITALS: BP 132/71; PULSE 80; RESP 18; TEMP 36.1; O2SAT 100
[2024-08-24] MEDS: LACTATED RINGERS 1,000 ML 150 ML IV CONT (07:21)
--- NOTE | 2024-08-24 08:10 | P.HP_ITS ---
History of Present Illness History of Present Illness Consent: Risks, benefits, and alternatives have been discussed and questions answered. Patient agrees to proceed with procedure. Chief complaint: Neoplasm screening Narrative: Blanche Shepherd is a 58 year old female with colon polyp 5 years ago Review of Systems Review of Systems: All systems reviewed & are unremarkable except as noted in HPI and below PMFSH Past Medical History Medical History (Updated 08/24/24 @ 08:11 by Alexandro Jeffery MD) Colon polyp Hyperlipidemia Hypertension Surgical History Surgical History History of appendectomy H/O section Family History Family History Grandparent Family history of malignant neoplasm of stomach Mother Hypertension Hyperlipidemia Afib Sibling Carcinoma of colon Other Family history of malignant neoplasm of kidney Social History Social History Smoking status: Never smoker Second hand tobacco smoke exposure: No Alcohol intake: current Alcohol use details: occasional Substance use: never Substance use type: does not use Lack of Transportation: No Lack of Food: Never True Current Housing: I Have Housing Concerned About Future Housing: No Difficulty Paying Gas/Electric Bills: No Difficulty Paying for Meds: No Currently Unemployed: No Education: Bachelor's Degree Difficulty w/ Childcare or Family Care: No Living arrangements: with family Occupation/Education: occupation Gender identity (if verbalized by the patient): Female Spiritual care concerns: No Meds Home Medications and Allergies Home Medications ?Medication ?Instructions ?Recorded ?Confirmed ?Type progesterone micronized 200 mg 100 mg PO DAILY 04/12/22 08/24/24 History capsule multivit with minerals-iron 18 1 tablet PO DAILY 08/13/22 08/24/24 History mg-folic ac 400 mcg-vit K 25 mcg tablet (Adults Multivitamin) atorvastatin 20 mg tablet 20 mg PO DAILY #90 tabs 04/08/24 08/24/24 Rx lisinopril 20 mg tablet 20 mg PO DAILY #90 tabs 05/28/24 08/24/24 Rx Allergies Allergy/AdvReac Type Severity Reaction Status Date / Time Sulfa (Sulfonamide Allergy Unknown rash, Verified 08/24/24 07:10 Antibiotics) throat swelling Vital Signs Vital Signs - 24 hr 08/24/24 07:13 Temperature 97 F L Pulse Rate 80 Respiratory Rate 18 Blood Pressure 132/71 Pulse Oximetry 100 Oxygen Delivery Room Air Exam Const: General: comfortable and no acute distress HENMT: Face/Nose/Sinus: Normal nares present Eyes: General: appearance normal, both eyes and all related structures Neck: Neck: no JVD Resp: Auscultation: clear to auscultation bilaterally Cardio: Rate: regular rate Rhythm: regular rhythm GI: Inspection: non-distended GI Palp: Yes Soft to palpation Skin: General skin exam: normal color Neuro: General: gait normal Speech: normal speech Extrem: General: normal to inspection Psych: Mental Status: mental status grossly normal Assessment and Plan Assessment and plan (1) Colon polyp: Code(s): K63.5 - Polyp of colon Status: Acute Assessment and Plan: colonoscopy
[2024-08-24 08:31] VITALS: BP 95/55; PULSE 73; RESP 20; O2SAT 98
[2024-08-24 08:41] VITALS: BP 100/59; PULSE 69; RESP 18; O2SAT 100
[2024-08-24 08:51] VITALS: BP 101/78; PULSE 74; RESP 20; O2SAT 99
== END 2024-08-24 09:06 | disposition home or self-care (01) ==
PROVIDERS: PCP Family Medicine; Visit Provider Internal Medicine Gastroenterology
PROC: 0DJD8ZZ Inspection of Lower Intestinal Tract, Via Natural or Artificial Opening Endoscopic (ICD-10-PCS; CPT 45378; principal; 2024-08-24 08:30)
DX: Z12.11 Encounter for screening for malignant neoplasm of colon (principal); K62.1 Rectal polyp; K57.30 Diverticulosis of large intestine without perforation or abscess without bleeding; K64.8 Other hemorrhoids; I10 Essential (primary) hypertension; E78.5 Hyperlipidemia, unspecified; E66.9 Obesity, unspecified; Z68.30 Body mass index [BMI] 30.0-30.9, adult
CPT/HCPCS: 45380; 88305; J2003; J2704; J7120

== ENCOUNTER 2024-10-25 09:14 | Outpatient (CLI) | payer BC, SELFPAY ==
--- NOTE | ~2024-10-25 | DEXA_ITS ---
Bone Density Report Name: COURTNEY DUNBAR Age: 58 Sex: Female Ethnicity: White Date of : 1965 Indication: postmenopausal; screening for osteoporosis; Referring Provider: LOREE MOSLEY Study: Bone densitometry was performed. Exam Date: October 25, 2024 Accession number: [id number] Bone Density: Region BMD T-score Z-score Classification AP Spine(L1-L4) 1.170 1.1 2.6 Normal Femoral Neck (Left) 0.863 0.1 1.5 Normal Total Hip (Left) 1.029 0.7 1.7 Normal Femoral Neck (Right) 0.861 0.1 1.4 Normal Total Hip (Right) 0.984 0.3 1.3 Normal Total Hip Mean 1.006 0.5 1.5 Normal World Health Organization criteria for BMD impression classify patients as: Normal (T-score at or above -1.0), Osteopenia (T-score between -1.0 and -2.5), or Osteoporosis (T-score at or below -2.5). 10-year Fracture Risk: FRAX not reported because: All T-scores for Spine Total, Hip Total, Femoral Neck at or above -1.0 Clinical Information Provided by Patient: Has used the following medications: HRT (i.e. estrogen/hormone therapy) Patient maximum height was 65 Menopause Age: 49 Drinks caffeinated beverages Onset of menses at age 10 Number of children 3 Impression: The patient has normal bone mass. Discussion: BONE DENSITY IS ABOVE THE MINIMUM DESIRABLE LEVEL AT ALL SKELETAL SITES TESTED. This patient?s bone mineral density is above the minimum desirable level (T-score -1.0 or better) at all sites measured. The patient should follow a healthful lifestyle (good nutrition with adequate calcium and vitamin D, and appropriate weight-bearing exercise). Follow-Up: Consider repeating this study in 5 years or sooner if there is some new clinical indication. Reported by: KEYA on 10/25/2024 9:47:00 AM. Reviewed, dictated and finalized at location [facility]
--- OUTSIDE RECORDS SUMMARY | 2024-10-25 09:27 | XMS_ITS | Referral Summary ---
Author Organization [facility] Address [address] [place] [address] Care Team Providers Care Field Superintendent Name Role Phone Rianna Syed MD Primary Care Provider [phone] Allergies Active Allergy Reactions Criticality Noted Date Comments Sulfa (Sulfonamide Antibiotics) Swelling,Rash Medium 1 09/19/2020 Medications lisinopriL (PRINIVIL,ZESTRI L) 20 mg tablet 07/03/2021 Act cary metroNIDAZOLE (METROGEL) 0.75 % vaginal gel 05/29/2021 Activ e progesterone (PROMETRIUM) 100 mg capsule 05/28/2021 Active atorvastatin (LIPITOR) 20 mg tablet Take 20 mg by mouth daily 05/04/2022 Active aspirin 81 mg enteric coated tablet Take 81 mg by mouth daily 05/04/2022 Active Active Problems Problem Noted Date Diagnosed Date Abnormal stress test 06/09/2022 Social History Tobacco Use Types Packs/Day Years Used Date Smoking Tobacco: Never Personal Safety Answer Date Recorded Getting School Help Needed Not on file 09/08 Comments Unknown Sex and Gender Information Value Date Recorded Sex Assigned at Not on file 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 Gender Identity Not on file Sexual Orientation Not on file 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 file Not on file Not on f ile Last Filed Vital Signs Vital Sign Reading Time Taken Comments Blood Pressure 134/82 06/09/2022 8:00 AM CDT Pulse 89 06/09/2022 8:00 AM CDT Temperature - - Respiratory Rate - - Oxygen Saturation 96% 06/09/2022 8:00 AM CDT Inhaled Oxygen Concentration - - Weight 82.5 kg (181 lb 12.8 oz) 06/09/2022 8:00 AM CDT Height 165.1 cm (5' 5 ) 06/09/2022 8:00 AM CDT Body Mass Index 30.25 06/09/2022 8:00 AM CDT Plan of Treatment Not on file Insurance [employer] [facility] Care Teams Field Superintendent Relationship Specialty Start Date End Date Rianna Syed MD PCP - General Family Medicine 09/07/21
--- OUTSIDE RECORDS SUMMARY | 2024-10-25 09:27 | XMS_ITS | Clinical Summary ---
Author Organization [facility] Address [address] [place] [address] Care Team Providers Care Sumatra Opener Name Role Phone Caleb Zavala MD Primary Care Provider [phone] Source Comments [facility],non-owned Affiliates and Associated Physician Practices is amultiple site organization consisting of ambulatory clinics and hospital sitesin [place], [place], [place] and [place]. This disclosure is being madepursuant to the Care Everywhere program and may not contain all information available regarding this patient. Last updated 18.[facility] Medications * Be aware that medications may not be up to date on this document. Alwaysverify current medications with the patient. Medication Sig Dispensed Refills Start Date End Date Status Covid-19, Pfizer, booster 12y+ bivalent mRNA vaccine, Burch Cap, 30 MCG/0.3ML SUSP injection PHARMACIST TO ADMINISTER 0.3 ML INTO LEFT DELTOID MUSCLE. DRAMATIC TEACHER: PFIZER, VIS: 05/05/22, LOT: [id number], EXP DATE: 03/04/23. VIS GIVEN: 06/11/22 0.3 mL 06/11/2022 Active Immunizations Name Administration Dates Next Due Covid Pfizer primary monoval ent 12+ yr 0.3mL Purple cap 10/01/2020,09/13/2020 TDAP (7yrs+) 11/14/2016 Social History Tobacco Use Types Packs/Day Years Used Date Smoking Tobacco: Never Assessed Sex and Gender Information Value Date Recorded Sex Assigned at Not on file Gender Identity Not on file Sexual Orientation Not on file Plan of Treatment Health Maintenance Due Date Last Done Comments COLOGCHANTELL (AGES 45-75) - COLON CA SCREENING 1963 COLON MONITORING 1963 COLONOSCOPY - COLON CA SCREENING 1963 CT COLONOGRAPHY - COLON CA SCREENING 1963 Colorectal Cancer Screening 1963 FIT - COLON CA SCREENING 1963 FLEX SIG - COLON CA SCREENING 1963 LIPID TESTING 1963 MAMMOGRAM 1963 PAP SMEAR 1963 HIV SCREENING 1978 HEPATITIS C SCREENING 10/25/1981 PNEUMOCOCCAL VACCINE 50+ (1 of 1 - PCV) 2013 ZOSTER VACCINE (1 of 2) 2013 COVID-19 VACCINE (5 - season) 2024 06/11/2022, 07/08/2021, 10/01/2020, Additional history exists INFLUENZA VACCINE (#1) 2024 DEPRESSION SCREENING 09/05/2024 DTAP/TDAP/TD VACCINES (2 - Td or Tdap) 11/14/2026 11/14/2016 Respiratory Syncytial Virus (RSV) Vaccine Pt: or over 60 yrs (1 - 1-dose 75+ series) 2038 HEPATITIS B VACCINE Aged Out No longe r eligible based on patient's age to complete this topic HIB VACCINE Aged Out No longer eligi ble based on patient's age to complete this topic HPV VACCINE Aged Out No longer eligi ble based on patient's age to complete this topic MENINGOCOCCAL (Group B) VACCINE Aged Out No longer eligible based on patient's age to complete this topic MENINGOCOCCAL VACCINE Aged Out No brijesh khoi eligible based on patient's age to complete this topic PNEUMOCOCCAL VACCINE Aged Out No long er eligible based on patient's age to complete this topic Care Teams Sumatra Opener Relationship Specialty Start Date End Date Caleb Zavala MD [address] [place] [address] PCP - General Family Medicine 11/14/16
--- OUTSIDE RECORDS SUMMARY | 2024-10-25 09:27 | XMS_ITS | Patient Health Summary ---
Author Organization [facility] Address [address] [place] [address] Care Team Providers Care Human Resource Management Instructor Name Role Phone Caleb Zavala MD Primary Care Provider [phone] Note from [facility],non-owned Affiliates and Associated Physician Practices is amultiple site organization consisting of ambulatory clinics and hospital sitesin [place], [place], [place] and [place]. This disclosure is being madepursuant to the Care Everywhere program and may not contain all information available regarding this patient. Last updated 18.[facility] Medications * Be aware that medications may not be up to date on this document. Alwaysverify current medications with the patient. * Covid-19, Pfizer, booster 12y+ bivalent mRNA vaccine, Burch Cap, 30 MCG/0.3ML SUSP injection(Started 06/11/2022) PHARMACIST TO ADMINISTER 0.3 ML INTO LEFT DELTOID MUSCLE. LEASE OUT WORKER: PFIZER, VIS: 05/05/22, LOT: [id number], EXP DATE: 03/04/23. VIS GIVEN: 06/11/22 Immunizations * Covid Pfizer primary monovalent 12+ yr 0.3mL Purple cap(Given 10/01/2020, 09/13/2020) * TDAP (7yrs+)(Given 11/14/2016) Social History Tobacco Use Types Packs/Day Years Used Date Smoking Tobacco: Never Assessed Sex and Gender Information Value Date Recorded Sex Assigned at Not on file Gender Identity Not on file Sexual Orientation Not on file Procedures * SARS-COV-2 (COVID-19) ANTIBODY IGG(Performed 04/04/2020) Performed for Immunity status testing Results * SARS-COV-2 (COVID-19) ANTIBODY IGG (04/04/2020 11:38 AM CDT) CoV2 IGG Negative 04/04/2020 1:47 PM CDT [facility] Blood BLOOD SPECIMEN / Unknown Lab Venipuncture / Unknown 04/04/2020 11:38 AM CDT 04/04/2020 11:38 AM CDT Narrative [facility] - 04/04/2020 1:47 PM CDT This serologic based test was developed by [employer] and its performance characteristics determined by [facility]. This test has not been fully reviewed by the FDA but is being allowed for use per the FDAs' Emergency Use Authorization. Please note the following disclaimers: Negative results do not rule out SARS-CoV-2 infection, particularly in those who have been in contact with the virus. Follow-up testing with a molecular diagnostic should be considered to rule out infection in these individuals. Results from antibody testing should not be used as the sole basis to diagnose or exclude SARS-CoV-2 infection or to inform infection status. False positive results may be due to past or present infection with [id number] coronavirus strains. Rigorous scientific studies have not been completed to determine if detectable IgG to SARS-CoV-2 confers protective immunity. Sonia Lucero MD LAB - FEATURES EDITOR RY ORDERABLES [address] [address], [facility] [phone] Care Teams Human Resource Management Instructor Relationship Specialty Start Date End Date Caleb Zavala MD [address] [place] [id number] PCP - General Family Medicine 11/14/16
--- OUTSIDE RECORDS SUMMARY | 2024-10-25 09:27 | XMS_ITS | Clinical Summary ---
Author Organization [facility] Address [address] [place] [address] Care Team Providers Care Towerman Name Role Phone Unavailable Primary Care Provider Unavailabl e Social History Tobacco Use Types Packs/Day Years Used Date Smoking Tobacco: Never Assessed Comments Unknown Sex and Gender Information Value Date Recorded Sex Assigned at Not on file Legal Sex Female 8:20 PM CDT Gender Identity Not on file Sexual Orientation Not on file Plan of Treatment Health Maintenance Due Date Last Done Comments Cervical Cancer Screening Pa p Smear (Age 30 to 64) Every 3 Years 1963 Colorectal Cancer Screening Colonoscopy (10 Years) 1963 Annual Physical 1966 Hepatitis C 1981 DTaP, Tdap and Td Vaccines ( 1 - Tdap) 1982 Cervical Cancer Screening Pa p with HPV Testing (Age 30 to 64) Every 5 Years 1993 Cervical Cancer Screening with HPV 1993 Mammogram Screening 2003 Zoster Vaccines (1 of 2) 2013 COVID-19 Vaccine (2023-2 5 season) 2024 Influenza Adult (#1) 2024 RSV Immunization or 60+ Years (1 - 1-dose 75+ series) 2038 Meningococcal B Vaccine Aged Out No l onger eligible based on patient's age to complete this topic Meningococcal Vaccine Aged Out No brijesh khoi eligible based on patient's age to complete this topic Pneumococcal Vaccine: Pediat rics (0 to 5 Years) and At-Risk Patients (6 to 64 Years) Aged Out No longer eligible b ased on patient's age to complete this topic RSV Immunizations Under 20 Months Aged Out No longer eligible based on patient's age to complete this topic
--- OUTSIDE RECORDS SUMMARY | 2024-10-25 09:27 | XMS_ITS | Clinical Summary ---
Author Organization [facility] [place] Address [address] [place] [address] Care Team Providers Care Zanjero Name Role Phone Rianna Syed MD Primary Care Provider [phone] Allergies Active Allergy Reactions Criticality Noted Date [...] Date Diagnosed Date Abnormal stress test 06/09/2022 Surgical History Surgery Date Site/Laterality Comments APPENDECTOMY SECTION Medical History Medical History Date Comments Hypertension Hyperlipidemia Family History Medical History Relation Name Comments Gout Father Atrial fibrillation Mother Heart disease Mother Hyperlipidemia Mother Relation Name Status Comments Father Mother Social History Tobacco Use Types Packs/Day Years Used Date Smoking Tobacco: Never Personal Safety Answer Date Recorded Getting School Help Needed Not on file 09/08 Comments Unknown Sex and Gender Information Value Date Recorded Sex Assigned at Not on file 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 Gender Identity Not on file Sexual Orientation Not on file 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 Not on file Not on f ile Obstetrics History Last Filed Vital Signs Vital Sign Reading [...] 06/09/2022 8:00 AM CDT Plan of Treatment Health Maintenance Due Date Last Done Comments Breast Cancer Screening-Mammogram 1963 Cervical Cancer Screening 1963 Colon Cancer Screening-Colonoscopy 1963 Depression Screening 1963 Hepatitis C Screening 1963 Regular Well Visit/Exam 18-64 1981 Zoster Vaccine (1 of 2) 2013 Covid-19 Vaccine (2023-2 5 season) 2024 07/08/2021, 10/01/2020, 09/13/2020 Influenza Vaccine (#1) 2024 DTaP/Tdap/Td Vaccine (2 - Td or Tdap) 11/14/2026 11/14/2016 Hepatitis B Screening Completed 04/30/2005 , 01/05/2005, 11/30/2004 Pneumococcal vaccine <65 Aged Out No longer eligible based on patient's age to complete this topic Insurance [facility] Care Teams Zanjero Relationship Specialty Start Date End Date Rianna Syed MD PCP - General Family Medicine 09/07/21
--- OUTSIDE RECORDS SUMMARY | 2024-10-25 09:27 | XMS_ITS | Referral Summary ---
Author Organization [facility] Address [address] [place] [address] Care Team Providers Care Azure Principal Solution Specialist Name Role Phone Caleb Zavala MD Primary Care Provider [phone] Source Comments [facility]non-owned Affiliates and Associated Physician Practices is amultiple site organization consisting of ambulatory clinics and hospital sitesin [place], [place], [place] and [place]. This disclosure is being madepursuant to the Care Everywhere program and may not contain all information available regarding this patient. Last updated 18.[facility] Medications * Be aware that medications may not be up to date on this document. Alwaysverify current medications with the patient. Medication Sig Dispensed Refills Start Date End Date Status Covid-19, Pfizer, booster 12y+ bivalent mRNA vaccine, Burch Cap, 30 MCG/0.3ML SUSP injection PHARMACIST TO ADMINISTER 0.3 ML INTO LEFT DELTOID MUSCLE. PROGRAM PROJECT ANALYST: PFIZER, VIS: 05/05/22, LOT: [id number], EXP DATE: 03/04/23. VIS GIVEN: 06/11/22 0.3 [...] Orientation Not on file Plan of Treatment Not on file Care Teams Azure Principal Solution Specialist Relationship Specialty Start Date End Date Caleb Zavala MD [address] [place] [id number] PCP - General Family Medicine 11/14/16
== END 2024-10-25 09:15 | disposition home or self-care (01) ==
LOC: ANHIMG 09:17
PROVIDERS: PCP Family Medicine; Visit Provider Student in an Organized Health Care Education/Training Program
DX: Z13.820 Encounter for screening for osteoporosis (principal)
CPT/HCPCS: 77080

== ENCOUNTER 2024-11-30 15:39 | Outpatient (CLI) | payer BC, SELFPAY ==
--- NOTE | ~2024-11-30 | MM_ITS ---
EXAMINATION: MM screening mary BI w james HISTORY: Screening TECHNIQUE: Craniocaudal and mediolateral oblique 3-D tomosynthesis images were obtained and synthetic 2-D images were generated. CAD analysis was submitted and interpreted. COMPARISON: 11/25/2023 BREAST PARENCHYMAL COMPOSITION: There are scattered areas of fibroglandular density. FINDINGS: Punctate calcifications are detected bilaterally, stable and benign in appearance. Microclip within the upper slightly inner left breast, consistent with patient's history. Stable parenchymal pattern without suspicious microcalcifications, architectural distortion, discrete masses or significant asymmetry. IMPRESSION: 1. No mammographic evidence of malignancy. 2. Recommend routine screening mammography in one year. BI-RADS Category 2: Benign finding(s). Reviewed, dictated and finalized at location A.
--- OUTSIDE RECORDS SUMMARY | 2024-11-30 15:48 | XMS_ITS | Clinical Summary ---
Author Organization [facility] Address [address] [place] [address] Care Team Providers Care Field Party Manager Name Role Phone Unavailable Primary Care Provider [...]
--- OUTSIDE RECORDS SUMMARY | 2024-11-30 15:48 | XMS_ITS | Clinical Summary ---
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
--- OUTSIDE RECORDS SUMMARY | 2024-11-30 15:48 | XMS_ITS | Referral Summary ---
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
--- OUTSIDE RECORDS SUMMARY | 2024-11-30 15:48 | XMS_ITS | Clinical Summary ---
Author Organization [facility] Address [address] [place] [address] Care Team Providers Care Heating Repair Technician Name Role Phone Caleb Zavala MD Primary Care Provider [phone] Source Comments [facility],non-owned Affiliates and Associated Physician Practices is amultiple site organization consisting of ambulatory clinics and hospital sitesin [place], [place], [place] and [place]. This disclosure is being madepursuant to the Care Everywhere program and may not contain all information available regarding this patient. Last updated 18.[facility] Medications * Be aware that medications may not be up to date on this document. Alwaysverify current medications with the patient. Medication Sig Dispensed Refills Start Date End Date Status Covid-19, Pfizer, booster 12y+ bivalent mRNA vaccine, Burch Cap, 30 MCG/0.3ML SUSP injection PHARMACIST TO ADMINISTER 0.3 ML INTO LEFT DELTOID MUSCLE. 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 VIS GIVEN: 06/11/22 0.3 [...] complete this topic MENINGOCOCCAL (Group B) VACCINE SHARED DECISION-MAKING Aged Out No longer eligible based on patient's age to complete this topic MENINGOCOCCAL GROUPS A/C/Y/W VACCINE Aged Out No longer eligible based on patient's age to complete this topic PNEUMOCOCCAL VACCINE Aged Out No long er eligible based on patient's age to complete this topic Care Teams Heating Repair Technician Relationship Specialty Start Date End Date Caleb Zavala MD [address] [place] [id number] PCP - General Family Medicine 11/14/16
== END 2024-11-30 15:40 | disposition home or self-care (01) ==
LOC: ANHIMG 15:44
PROVIDERS: PCP Family Medicine; Visit Provider Obstetrics & Gynecology Gynecology
DX: Z12.31 Encounter for screening mammogram for malignant neoplasm of breast (principal)
CPT/HCPCS: 77063; 77067